=== PATIENT | female | born 1945 | race Caucasian/White ===

== ENCOUNTER 2023-04-19 16:09 | Inpatient (IN) | payer OTHER ==
[~2023-04-19] VITALS: Ht 167.6 cm; Wt 49.6 kg
[2023-04-19 16:32] VITALS: BP 136/84
[2023-04-19] MEDS ORDERED: AMIODARONE HYD200 MG PO (16:39)
[2023-04-19] MEDS ORDERED: ELIQUIS2.5 M1 PO (16:39)
[2023-04-19] MEDS ORDERED: BUPRENORPHINE1 EAC2 TD (16:40)
[2023-04-19] MEDS ORDERED: Sinemet Cr 25-11 TAB PO (16:41)
[2023-04-19] MEDS ORDERED: DEPAKOTE SPRIN125 MG PO (16:42)
[2023-04-19] MEDS ORDERED: CYMBALTA60 MG PO (16:42)
[2023-04-19] MEDS ORDERED: FENOFIBRATE160 MG PO (16:43)
[2023-04-19] MEDS ORDERED: FERROUS SULFAT325 MG PO (16:46)
[2023-04-19] MEDS ORDERED: GLIPIZIDE5 MG PO (16:47)
[2023-04-19] MEDS ORDERED: NEURONTIN400 MG PO (16:47)
[2023-04-19] MEDS ORDERED: LEVOTHYROXINE112 MC1 PO (16:48)
[2023-04-19] MEDS ORDERED: ZESTRIL2.5 MG PO (16:48)
[2023-04-19] MEDS ORDERED: MGO400 MG PO (16:49)
[2023-04-19] MEDS ORDERED: MELATONIN3 M3 PO (16:49)
[2023-04-19] MEDS ORDERED: METOPROLOL SUCC25 M2 PO (16:50)
[2023-04-19] MEDS ORDERED: NUED1CAP PO (16:52)
[2023-04-19 17:00] LABS: BASO % 0.2 % (0.0-1.0); EOS % 0.2 % (1.0-4.0); LYMPH # 1.3 10*3/uL (1.3-4.4); LYMPH % 13.3 % (27.0-41.0); MEAN CELL VOLUME 93.9 fl (81.0-99.0); MEAN CORPUSCULAR HGB CONC 30.8 g/dl (33.0-37.0); MEAN PLATELET VOLUME 8.9 fl (9.6-12.3); MONO # 0.4 10*3/uL (0.1-1.0); MONO % 3.6 % (3.0-9.0); NEUT % 82.3 % (47.0-73.0); PLATELET COUNT AUTOMATED 366 10*3/uL (130-400); RED BLOOD COUNT 5.11 10*6/uL (4.10-5.10); RED CELL DISTRI WIDTH 14.3 % (0-14.5); WHITE BLOOD COUNT 9.7 10*3/uL (4.8-10.8)
[2023-04-19] MEDS ORDERED: PANTOPRAZOLE SO40 MG PO (17:04)
[2023-04-19] MEDS ORDERED: ONDANSETRON HYDR4 MG PO (17:04)
[2023-04-19] MEDS ORDERED: TRAMADOL HCL50 MG PO (17:05)
[2023-04-19 17:15] LABS: ACT PARTIAL THROMBO TIME 29.5 SECONDS (20.0-32.1); INTERNATIONAL NORM RATIO 1.1 (2.0-3.5)
[2023-04-19 17:21] LABS: ALKALINE PHOSPHATASE 65 U/L (46-116); BUN 20 mg/dl (9-23); CHLORIDE 103 mmol/L (98-107); LIPASE 33 U/L (12-53); POTASSIUM 4.4 mmol/L (3.4-5.1); TOTAL PROTEIN 6.4 gm/dL (6.0-8.0); VALPROIC ACID (DEPAKENE) 42.9 ug/ml (50-100)
[2023-04-19 17:23] LABS: SGPT/ALT < 7 U/L (10-49)
[2023-04-19 18:06] LABS: BILIRUBIN Negative (Negative); BLOOD Trace-Lysed (Negative); CLARITY Clear (Clear); COLOR Yellow (Yellow); GLUCOSE Negative (Negative); KETONE Negative (Negative); LEUKO ESTERASE 2+ (Negative); NITRITE Negative (Negative); SPECIFIC GRAVITY 1.015 (1.001-1.030)
[2023-04-19 18:13] LABS: WBC TNTC wbc/hpf (0-5)
[2023-04-19 18:14] LABS: BACTERIA 2+
[2023-04-19 18:35] VITALS: BP 133/72
[2023-04-20] MEDS ORDERED: HEALTHYLAX17 GM PO (00:39)
[2023-04-20] MEDS ORDERED: PREDNISONE20 M1 PO (00:42)
[2023-04-20] MEDS ORDERED: TYLENOL325 M2 PO (00:45)
[2023-04-20] MEDS ORDERED: AIRSUPRA 90-810.7 GM PO (00:53)
[2023-04-20] MEDS ORDERED: GENTLE LAXATIVE5 M2 PO (00:54)
[2023-04-20 06:50] LABS: BASO % 0.3 % (0.0-1.0); EOS # 0.1 10*3/uL (0.0-0.4); EOS % 1.5 % (1.0-4.0); HEMATOCRIT 50.4 % (37.0-47.0); LYMPH # 2.8 10*3/uL (1.3-4.4); MEAN CELL VOLUME 93.9 fl (81.0-99.0); MEAN CORPUSCULAR HGB 29.6 pg (27.0-31.0); MEAN CORPUSCULAR HGB CONC 31.5 g/dl (33.0-37.0); MEAN PLATELET VOLUME 8.9 fl (9.6-12.3); MONO # 0.8 10*3/uL (0.1-1.0); NEUT # 5.4 10*3/uL (2.3-7.9); NEUT % 58.8 % (47.0-73.0); PLATELET COUNT AUTOMATED 377 10*3/uL (130-400); RED BLOOD COUNT 5.37 10*6/uL (4.10-5.10); RED CELL DISTRI WIDTH 14.4 % (0-14.5); WHITE BLOOD COUNT 9.3 10*3/uL (4.8-10.8)
[2023-04-20 07:17] LABS: POTASSIUM 4.2 mmol/L (3.4-5.1); TOTAL PROTEIN 6.1 gm/dL (6.0-8.0)
[2023-04-20 07:53] VITALS: BP 134/71
[2023-04-20 07:53] LABS: VITAMIN D, 25-HYDROXY 29.4 ng/mL (30-100)
[2023-04-20 20:00] VITALS: BP 101/60
[2023-04-21 07:39] VITALS: BP 134/73
[2023-04-21 20:00] VITALS: BP 158/77
[2023-04-22 08:00] VITALS: BP 95/54
[2023-04-22 20:00] VITALS: BP 84/41
[2023-04-23 08:00] VITALS: BP 148/76
[2023-04-23 16:15] LABS: BASO % 0.3 % (0.0-1.0); EOS # 0.1 10*3/uL (0.0-0.4); EOS % 0.6 % (1.0-4.0); HEMATOCRIT 44.9 % (37.0-47.0); LYMPH # 0.8 10*3/uL (1.3-4.4); LYMPH % 8.6 % (27.0-41.0); MEAN CELL VOLUME 92.2 fl (81.0-99.0); MEAN CORPUSCULAR HGB 29.4 pg (27.0-31.0); MEAN CORPUSCULAR HGB CONC 31.8 g/dl (33.0-37.0); MEAN PLATELET VOLUME 8.8 fl (9.6-12.3); MONO # 0.9 10*3/uL (0.1-1.0); MONO % 9.4 % (3.0-9.0); NEUT # 7.9 10*3/uL (2.3-7.9); NEUT % 80.8 % (47.0-73.0); PLATELET COUNT AUTOMATED 262 10*3/uL (130-400); RED BLOOD COUNT 4.87 10*6/uL (4.10-5.10); RED CELL DISTRI WIDTH 14.3 % (0-14.5); WHITE BLOOD COUNT 9.7 10*3/uL (4.8-10.8)
[2023-04-23 16:37] LABS: POTASSIUM 4.5 mmol/L (3.4-5.1)
[2023-04-23 20:00] VITALS: BP 128/68
[2023-04-24 08:13] VITALS: BP 116/48
[2023-04-24 20:00] VITALS: BP 100/56; BP 94/52
[2023-04-25 08:05] VITALS: BP 125/64
[2023-04-25 20:00] VITALS: BP 98/58
[2023-04-26 08:22] VITALS: BP 111/63
[2023-04-26 20:00] VITALS: BP 121/72
[2023-04-27 08:00] VITALS: BP 116/68
[2023-04-27 20:00] VITALS: BP 106/74
[2023-04-28 08:38] VITALS: BP 132/78
[2023-04-28 20:00] VITALS: BP 113/60
[2023-04-29] MEDS ORDERED: QUETIAPINE FUMA50 M1 PO (07:40)
[2023-04-29] MEDS ORDERED: NAMENDA-5 PO (07:40)
[2023-04-29] MEDS ORDERED: RIVASTIGMINE1 EAC2 T (07:40)
[2023-04-29 07:55] VITALS: BP 101/57
[2023-04-29] MEDS ORDERED: VITAMIN D325 MC1 PO (08:31)
== END 2023-04-29 13:20 | DRG 885 ==
LOC: ED 16:09 → 3N 18:49
PROVIDERS: Emergency Medicine; Internal Medicine; Student in an Organized Health Care Education/Training Program; ADMIT Psychiatry & Neurology Psychiatry; ATTEND Psychiatry & Neurology Psychiatry
DX: F23 Brief psychotic disorder (principal); N18.9 Chronic kidney disease, unspecified; E11.65 Type 2 diabetes mellitus with hyperglycemia; N30.01 Acute cystitis with hematuria; F02.82 Dementia in other diseases classified elsewhere, unspecified severity, with psychotic disturbance; E44.0 Moderate protein-calorie malnutrition; Z68.1 Body mass index [BMI] 19.9 or less, adult; F33.9 Major depressive disorder, recurrent, unspecified; G30.9 Alzheimer's disease, unspecified; I48.91 Unspecified atrial fibrillation; E61.1 Iron deficiency; K21.9 Gastro-esophageal reflux disease without esophagitis; E03.9 Hypothyroidism, unspecified; E78.5 Hyperlipidemia, unspecified; G47.00 Insomnia, unspecified; G89.29 Other chronic pain; M54.9 Dorsalgia, unspecified; E11.40 Type 2 diabetes mellitus with diabetic neuropathy, unspecified; E11.22 Type 2 diabetes mellitus with diabetic chronic kidney disease; N18.31 Chronic kidney disease, stage 3a; S81.812A Laceration without foreign body, left lower leg, initial encounter; R63.0 Anorexia; X58.XXXA Exposure to other specified factors, initial encounter; S81.801A Unspecified open wound, right lower leg, initial encounter; S90.32XA Contusion of left foot, initial encounter; S90.31XA Contusion of right foot, initial encounter; I12.9 Hypertensive chronic kidney disease with stage 1 through stage 4 chronic kidney disease, or unspecified chronic kidney disease; S61.412A Laceration without foreign body of left hand, initial encounter; G31.83 Neurocognitive disorder with Lewy bodies; Z86.711 Personal history of pulmonary embolism; Z95.0 Presence of cardiac pacemaker; Y93.89 Activity, other specified; Y92.89 Other specified places as the place of occurrence of the external cause; Y99.8 Other external cause status